=== PATIENT | female | born 1935 | race Hispanic/Latino ===

== ENCOUNTER → 2017-08-26 | Day surgery (SDC) | payer MEDICARE ==
[2017-08-21 14:44] LABS: BASOPHILS % 0.3 % (0.0-1.0); EOSINOPHILS # (AUTO) 0.4 (0.0-0.4); EOSINOPHILS % 4.5 % (0.0-6.0); HEMATOCRIT 42.2 % (34.2-44.1); HEMOGLOBIN 14.1 g/dL (12.0-16.0); LYMPHOCYTES % 23.3 % (18.0-39.1); MEAN CORPUSCULAR HGB CONC 33.4 g/dL (31-35); MEAN CORPUSCULAR VOLUME 92.7 fL (81-99); MONOCYTES # (AUTO) 0.7 (0.2-0.8); MONOCYTES % 8.1 % (4.4-11.3); NEUTROPHILS # (AUTO) 5.5 (2.1-6.9); NEUTROPHILS % 63.3 % (38.7-80.0); PLATELET COUNT 196 x10e3/uL (140-360); RED BLOOD COUNT 4.55 x10e6/uL (3.6-5.1); RED CELL DISTRIBUTION WIDTH 12.9 % (11.7-14.4)
[~2017-08-26] MED LIST: FENTANYL CITRATE/PF 100MCG/2 ML INJ ONE; GLIPIZIDE5 MG PO; HYDROCHLOROTHIA25 MG PO; LEVOTHYROXINE50 MCG PO; METOPROLOL TART50 MG PO; PROPOFOL IV EMULSION 10 MG/ML 50 ML VIAL ONE; VESICARE5 MG PO
--- OUTSIDE RECORDS SUMMARY | 2017-08-26 07:09 | XMS REPORT ---
Author [facility] Address Unknown Phone Unavailable Care Team Providers Care Jewel Stringer Name Role Phone GAYLE LOWE Unavailable Unavailable Problems This patient has no known problems. Allergies, Adverse Reactions, Alerts This patient has no known allergies or adverse reactions. Medications This patient has no known medications. Results Test Description Test Time Test Comments Text Results Atomic Results Result Comments OUTSIDE CONSULTATION 2017-07-23 14:48:00 Surgical Pathology Report Case: [id number] Authorizing Provider: Gayle Lowe MD Collected: 06/18/2017 1116 MPH Ordering Location: [facility] Laboratory Received: 06/18/2017 1119 Pathologist: Maggie Nunn MD Specimen: Biopsy, Liver, Received 10 slides [facility] [place] label [id number] OUTSIDE SLIDES, [id number], CORE BIOPSY OF LIVER ( DATE OF PROCEDURE 03/23/2014)- STEATOHEPATITIS- FIBROSIS STAGE 3-4 OF 4- MILD TO MODERATE HEMOSIDEROSIS- SEE COMMENT The non-alcoholic steatohepatitis (DONOVAN) activity scoring is performed according to guidelines from non-alcoholic steatohepatitis , clinical research network (Galo, et al. Hepatology 2005. 41:1313-21), at the request of the clinicianThe DONOVAN score is: Steatosis: Grade 3 + lobular inflammation, grade 2 + hepatocyte ballooning score 2=7/8. The fibrosis score is 3-4 of 4 Per pathology report provided the liver biopsy was sent for iron quantification to [facility] at [address]. The results are as follows (per pathology report)Iron in liver tissue: 499 microg (reference interval: 270-1600)Iron index: 0.12 (reference interval: 0-2)The case was discussed at the weekly liver biopsy conference held in the [facility] at [facility] on June 20, 2017. 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 Labs from 04/22/2017: AST 56, ALT 50, ALP 169 , AFP 7.6 and T bili 0.6. Outside slides, [id number], core biopsy of liver, date of procedure/specimen collection 03/23/2014 received from [facility], [address] [place], [place] [address].Received are 10 glass slides, each labeled [id number] (HE x2, PAS-D, Reticulin, Iron, Trichrome, PAS control, iron control, Trichrome control and Reticulin control).Section shows multiple cores of liver parenchyma with greater than 10 portal tracts and is adequate for evaluation. There is diffuse steatosis, macrovesicular type admixed with small and medium droplet steatosis, involving about 70% of liver parenchyma. Multifocal ballooning degeneration with early Donna Denk hyaline is noted. There is moderate lobular inflammation with few scattered acidophilic bodies. Focal neutrophilic infiltration is seen. Few glycogenated nuclei are seen. The portal tracts show mild chronic lymphocyte-predominant inflammation with mild interface hepatitis. The bile ducts are preserved in most portal tracts and show mild damage and focal ill-defined periductal sclerosis. Cholangiolar proliferation with associated neutrophils is present. Iron stain shows 2+ staining of the hepatocytes. No hyaline globules are seen on PASD stain. The trichrome stain shows prominent perisinusoidal fibrosis along with portal/periportal fibrosis and bridging fibrosis with focal nodularity. s MR, ABDOMEN, WITH 2017-06-11 11:10:00 Referring: Dr. Indra Ramires FINAL REPORT History: Cirrhosis, rule out liver mass/lesion Comparison: None Technique : Multiplanar imaging with multiple sequences of the abdomen was performed utilizing a 3.0 trish magnet with and without the administration of gadolinium contrast. Comment: The lung bases are clear. There are no focal or diffuse abnormalities of the osseous structures. The subcutaneous soft tissues as well as the musculature are within normal limits. The spleen, adrenal glands, gallbladder, pancreas, stomach, and duodenum are within normal limits. There is no abdominal or retroperitoneal lymphadenopathy. The visualized portions of the large and small bowel are within normal limits. Arising from the upper pole of the left kidney, there is a small cyst. Seen on the coronal view only, there is a partially visualized cystic lesion in the pelvis measuring up to 3.7 cm. Correlation with a pelvic ultrasound is advised. There is hepatic cirrhosis. No suspicious enhancing hepatic lesions are seen. No ascites is identified. The portal vein measures up to a maximum of 1.4 cm in diameter. There is no portal, splenic, or superior mesenteric vein thrombosis. There is a small recanalized periumbilical vein. Impression: 1. Hepatic cirrhosis. No suspicious enhancing hepatic lesions are seen. 2. Findings consistent with portal hypertension. 3. Partially visualized cysts/cystic lesion in the pelvis. In a postmenopausal female, this should be further evaluated with a pelvic ultrasound. Signed: Serg Kimbrough MDReport Verified Date/ Time: 06/11/2017 11:10:41 Reading Location: [facility] Diagnostic Imaging Reading Room - [place] [id number] Electronically signed by: SERG KIMBROUGH M.D. on 2016 11:10 AM HEPATITIS C PCR, QUANTITATIVE 2017-05-31 13:48:00 HCV RESULT COMPONENT (BEAKER) (test egwm=6120) HCV RNA not detected HCV RNA not detected This test uses a Real-Time Polymerase Chain Reaction (RT-PCR) methodology and was performed using LIYAH Ampliprep/LIYAH TaqMan HCV test kit version 2.0 ( [employer]).Reportable range for this assay is 15 - 100,000, 000 IU per mL (1.18 - 8.00 Log IU/mL).ANTI-NUCLEAR ANTIBODY (CATRINA)2017-05-29 13: 24:00* Test Item Value Reference Range Comments ANTI-NUCLEAR ANTIBODY (CATRINA) (BEAKER) (test utfs=823) Positive Negative CATRINA TITER AND [id number] 13:24:00* Test Item Value Reference Range Comments CATRINA TITER (BEAKER) (test adcj=6379) :160 CATRINA PATTERN (BEAKER) (test qksd=8409) Homogeneous [id number] 15:34:00* Test Item Value Reference Range Comments FERRITIN (BEAKER) (test ssta=957) 326 ng/mL 5-275 HEPATITIS A ANTIBODY, [id number] 14:55:00* Test Item Value Reference Range Comments HEPATITIS A IGG ANTIBODY (BEAKER) (test spbo=8025) Reactive Nonreactive HEPATITIS B SURFACE [id number] 14:52:00* Test Item Value Reference Range Comments HEPATITIS B SURFACE ANTIBODY (BEAKER) (test vkyo=194) < mIU/mL <8.0 ALPHA FETOPROTEIN (AFP), TUMOR [id number] 14:40:00* Test Item Value Reference Range Comments ALPHA-FETOPROTEIN (BEAKER) (test rfpl=0097) 8.1 ng/mL <10.0 HEPATITIS B CORE ANTIBODY, [id number] 14:40:00* Test Item Value Reference Range Comments HEPATITIS B CORE TOTAL ANTIBODY (BEAKER) (test kflo=080) Nonreactive Nonreactive COMPREHENSIVE METABOLIC [id number] 13:38:00* Test Item Value Reference Range Comments TOTAL PROTEIN (BEAKER) (test hvnr=700) 8.2 gm/dL 6.0-8.3 ALBUMIN (BEAKER) (test ljro=8974) 4.3 g/dL 3.5-5.0 ALKALINE PHOSPHATASE (BEAKER) (test vpjl=001) 178 U/L 40-150 BILIRUBIN TOTAL (BEAKER) (test jzno=454) 1.0 mg/dL 0.2-1.2 SODIUM (BEAKER) (test nkkv=578) 136 meq/L 136-145 POTASSIUM (BEAKER) (test yxlv=692) 3.5 meq/L 3.5-5.1 CHLORIDE (BEAKER) (test lnfu=572) 96 meq/L 98-107 CO2 (BEAKER) (test tgwl=334) 26 meq/L 22-29 BLOOD UREA NITROGEN (BEAKER) (test jnzf=469) 20 mg/dL 7-21 CREATININE (BEAKER) (test djwj=985) 1.15 mg/dL 0.57-1.25 GLUCOSE RANDOM (BEAKER) (test bvkg=809) 91 mg/dL 70-105 CALCIUM (BEAKER) (test mzjo=623) 10.0 mg/dL 8.4-10.2 AST (SGOT) (BEAKER) (test uvbg=299) 59 U/L 5-34 ALT (SGPT) (BEAKER) (test otsc=442) 48 U/L 6-55 EGFR (BEAKER) (test pfhe=0414) 45 mL/min/1.73 sq m ESTIMATED GFR IS NOT ACCURATE CREATININE CLEARANCE IN PREDICTING GLOMERULAR FILTRATION RATE. ESTIMATED GFR IS NOT APPLICABLE FOR DIALYSIS PATIENTS. BILIRUBIN, [id number] 13:38:00* Test Item Value Reference Range Comments BILIRUBIN DIRECT (BEAKER) (test tdwx=770) 0.4 mg/dL 0.1-0.5 HEPATITIS B SURFACE [id number] 13:20:00* Test Item Value Reference Range Comments HEPATITIS B SURFACE ANTIGEN (2) (BEAKER) (test zonv=2868) Nonreactive Nonreactive HEPATITIS C [id number] 13:20:00* Test Item Value Reference Range Comments HEPATITIS C ANTIBODY (BEAKER) (test sudr=699) Nonreactive Nonreactive IRON, TIBC, % SAT. (WITHOUT FERRITIN)2017-05-28 12:55:00* Test Item Value Reference Range Comments IRON (BEAKER) (test hwnd=740) 77 ug/dL 40-160 TOTAL IRON BINDING CAPACITY (BEAKER) (test lmmg=912) 334 ug/dL 250-450 IRON % SATURATION (2) (BEAKER) (test iuml=8230) 23 % 20-55 PROTHROMBIN TIME/[id number] 12:47:00* Test Item Value Reference Range Comments PROTIME (BEAKER) (test scob=712) 16.0 seconds 11.7-14.7 INR (BEAKER) (test utwy=114) 1.3 <=5.9 RECOMMENDED COUMADIN/WARFARIN INR THERAPY RANGESSTANDARD DOSE: 2.0 - 3.0 Includes: PROPHYLAXIS for venous thrombosis, systemic embolization; TREATMENT for venous thrombosis and/or pulmonary embolus.HIGH RISK: Target INR is 2.5-3.5 for patients with mechanical heart valves.CBC W/PLT COUNT & AUTO [id number] 12:39:00* Test Item Value Reference Range Comments WHITE BLOOD CELL COUNT (BEAKER) (test qtlo=102) 9.1 K/ L 3.5-10.5 RED BLOOD CELL COUNT (BEAKER) (test hecs=648) 4.41 M/ L 3.93-5.22 HEMOGLOBIN (BEAKER) (test rhxz=285) 13.7 GM/DL 11.2-15.7 HEMATOCRIT (BEAKER) (test atmq=044) 41.5 % 34.1-44.9 MEAN CORPUSCULAR VOLUME (BEAKER) (test girp=630) 94.1 fL 79.4-94.8 MEAN CORPUSCULAR HEMOGLOBIN (BEAKER) (test wkik=602) 31.1 pg 25.6-32.2 MEAN CORPUSCULAR HEMOGLOBIN CONC (BEAKER) (test ekse=516) 33.0 GM/DL 32.2- 35.5 RED CELL DISTRIBUTION WIDTH (BEAKER) (test ucbx=779) 13.0 % 11.7-14.4 PLATELET COUNT (BEAKER) (test sxsj=877) 211 K/CU MM 150-450 MEAN PLATELET VOLUME (BEAKER) (test rhqc=619) 11.3 fL 9.4-12.3 NUCLEATED RED BLOOD CELLS (BEAKER) (test olmy=934) 0 /100 WBC 0-0 NEUTROPHILS RELATIVE PERCENT (BEAKER) (test jmmr=784) 62 % LYMPHOCYTES RELATIVE PERCENT (BEAKER) (test epch=027) 26 % MONOCYTES RELATIVE PERCENT (BEAKER) (test lrap=866) 7 % EOSINOPHILS RELATIVE PERCENT (BEAKER) (test tczi=182) 4 % BASOPHILS RELATIVE PERCENT (BEAKER) (test zunq=174) 0 % NEUTROPHILS ABSOLUTE COUNT (BEAKER) (test hjwa=706) 5.61 K/ L 1.56-6.13 LYMPHOCYTES ABSOLUTE COUNT (BEAKER) (test rgvh=327) 2.40 K/ L 1.18-3.74 MONOCYTES ABSOLUTE COUNT (BEAKER) (test fzxn=394) 0.65 K/ L 0.24-0.36 EOSINOPHILS ABSOLUTE COUNT (BEAKER) (test hots=247) 0.35 K/ L 0.04-0.36 BASOPHILS ABSOLUTE COUNT (BEAKER) (test gvgr=063) 0.04 K/ L 0.01-0.08 IMMATURE GRANULOCYTES-RELATIVE PERCENT (BEAKER) (test oogp=9215) 1 % 0-1
== END | disposition home or self-care (01) ==
LOC: OR 07:06
PROVIDERS: ATTEND Internal Medicine Gastroenterology
DX: K74.69 Other cirrhosis of liver (principal); D12.0 Benign neoplasm of cecum; D12.3 Benign neoplasm of transverse colon; K29.70 Gastritis, unspecified, without bleeding; K21.0 Gastro-esophageal reflux disease with esophagitis; K44.9 Diaphragmatic hernia without obstruction or gangrene; K57.30 Diverticulosis of large intestine without perforation or abscess without bleeding; K64.8 Other hemorrhoids; R93.5 Abnormal findings on diagnostic imaging of other abdominal regions, including retroperitoneum; I10 Essential (primary) hypertension; J45.909 Unspecified asthma, uncomplicated; E03.9 Hypothyroidism, unspecified; E11.9 Type 2 diabetes mellitus without complications; Z01.810 Encounter for preprocedural cardiovascular examination; Z01.812 Encounter for preprocedural laboratory examination; Z68.34 Body mass index [BMI] 34.0-34.9, adult
CPT/HCPCS: 36415; 43239; 45384; 45385; 82948; 85025; 88305; 88312; 93005

== ENCOUNTER → 2018-11-12 | Outpatient (CLI) | payer MEDICARE ==
[~2018-11-12] MED LIST changes: -FENTANYL CITRATE/PF 100MCG/2 ML INJ ONE; +LORATADINE10 MG PO; -PROPOFOL IV EMULSION 10 MG/ML 50 ML VIAL ONE
--- NOTE | 2018-11-12 09:01 | Diagnostic Imaging Report ---
Right upper quadrant ultrasound. History: Nonalcoholic micronodular cirrhosis of the liver Comparison: 03/29/2015. Discussion: Transverse and longitudinal images of the abdomen were obtained demonstrating a liver of normal size measuring 14.2 cm in length (previously measured 14.3 cm). There is increased hepatic echogenicity compatible with steatosis. Hepatic contour is nodular. No mass is identified. The portal vein is patent with hepatopetal flow and is within normal limits measuring 11 mm in diameter. The biliary tree is within normal limits with the common bile duct measuring 3 mm in diameter. The gallbladder is normal without evidence of stones, wall thickening or pericholecystic fluid. The sonographic Flores's sign was negative. The right kidney is normal in size without evidence of hydronephrosis, stones or mass. The right kidney measures 10.2 x 4.7 x 4.2 cm. The pancreas is normal in appearance. The abdominal aorta is within normal limits. The IVC is patent. There is no evidence of free fluid. IMPRESSION: Hepatic steatosis without significant interval change. Signed by: Dr. Zackary Garcias DO on 11/12/2018 8:58 AM
== END ==
LOC: US 07:26
PROVIDERS: ATTEND Internal Medicine Gastroenterology
DX: K74.69 Other cirrhosis of liver (principal)
CPT/HCPCS: 76705

== ENCOUNTER → 2018-11-17 | Day surgery (SDC) | payer MEDICARE ==
[2018-11-12 09:17] LABS: BASOPHILS % 0.3 % (0.0-1.0); EOSINOPHILS # (AUTO) 0.3 (0.0-0.4); EOSINOPHILS % 4.3 % (0.0-6.0); HEMATOCRIT 41.9 % (34.2-44.1); HEMOGLOBIN 14.3 g/dL (12.0-16.0); LYMPHOCYTES # (AUTO) 2.1 (1.0-3.2); LYMPHOCYTES % 30.1 % (18.0-39.1); MEAN CORPUSCULAR HEMOGLOBIN 30.8 pg (28-32); MEAN CORPUSCULAR HGB CONC 34.1 g/dL (31-35); MEAN CORPUSCULAR VOLUME 90.3 fL (81-99); MONOCYTES # (AUTO) 0.5 (0.2-0.8); MONOCYTES % 6.9 % (4.4-11.3); PLATELET COUNT 176 x10e3/uL (140-360); RED BLOOD COUNT 4.64 x10e6/uL (3.6-5.1); RED CELL DISTRIBUTION WIDTH 13.9 % (11.7-14.4)
[2018-11-12 09:21] LABS: INR 1.13
[2018-11-12 09:22] LABS: PARTIAL THROMBOPLASTIN TIME 38.6 seconds (23.8-35.5)
[2018-11-12 09:35] LABS: ALBUMIN 3.7 g/dL (3.5-5.0); ALBUMIN/GLOBULIN RATIO 0.9 (0.8-2.0); ANION GAP 12.8 mmol/L (8-16); CALCIUM 9.7 mg/dL (8.4-10.2); CREATININE, SERUM 1.15 mg/dL (0.57-1.11); POTASSIUM 3.8 mmol/L (3.5-5.1)
[~2018-11-17] MED LIST changes: +LIDOCAINE HCL 2% LOCAL INJ 5 ML SDV VIAL INJ ONE; +PROPOFOL IV EMULSION 10 MG/ML 20 ML VIAL ONE
--- OUTSIDE RECORDS SUMMARY | 2018-11-17 06:55 | XMS REPORT | Clinical Summary ---
Author Author BRENDA Arcamed [facility] [place] Organization [facility] Address Unknown Phone Unavailable Care Team Providers Care Brush Maker Machine Name Role Phone Kathy Joseph MD PCP Allergies No Known Allergies Medications End Date Status Medication Sig Dispensed Refills Start Date Active VESICARE 5 mg tablet 0 7 Active hydroCHLOROthiazide 0 (HYDRODIURIL) 25 MG 7 tablet Active levothyroxine (SYNTHROID, Take 25 mcg 3 LEVOTHROID) 25 MCG tablet by mouth 7 daily TOME COLIN TABLETA POR VIA ORAL TODOS LOS GARCÍA. Active glipiZIDE (GLUCOTROL) 5 Take 5 mg by 1 MG tablet mouth daily. 7 Active metoprolol (LOPRESSOR) 0 100 MG tablet 7 Active beclomethasone (QVAR) 80 Inhale 1 puff 0 mcg/actuation inhaler by mouth via inhaler 2 (two) times daily. Active fluticasone (FLOVENT Inhale 1 puff 0 DISKUS) 50 mcg/actuation by mouth via diskus inhaler inhaler daily. Active Problems Problem Noted Date Cirrhosis PAVON (nonalcoholic steatohepatitis) Elevated liver enzymes Obesity, Class II, BMI 35-39.9 Abnormal findings on diagnostic imaging of abdomen Encounters Care Team Description Date Type Specialty Kelsie Morrison NP Results 02/16/2018 Telephone Hepatology Gayle Lowe MD MPH Cirrhosis of liver without ascites, unspecified hepatic cirrhosis type (HCC); Pelvic mass; Abnormal findings on diagnostic imaging of abdomen 02/13/2018 Hospital Radiology Encounter Gayle Lowe MD MPH Pelvic mass (Primary Dx); Cirrhosis of liver without ascites, unspecified hepatic cirrhosis type (HCC); Abnormal findings on diagnostic imaging of abdomen 02/11/2018 Orders Only Hepatology Gayle Lowe MD MPH Pelvic mass in female 02/10/2018 Hospital Radiology Encounter Gayle Lowe MD MPH 02/04/2018 Outside Orders Radiology Kelsie Morrison NP Pelvic mass in female (Primary Dx) 01/08/2018 Orders Only Hepatology Gayle Loew MD MPH Abnormal findings on diagnostic imaging of abdomen 01/06/2018 Hospital Radiology Encounter Haleigh Zelaya RN 01/01/2018 Abstract Hepatology Kelsie Morrison NP Results 12/31/2017 Telephone Hepatology Gayle Lowe MD MPH Kelsie Morrison NP Cirrhosis of liver without ascites, unspecified hepatic cirrhosis type (HCC) (Primary Dx); Abnormal findings on diagnostic imaging of abdomen; PAVON (nonalcoholic steatohepatitis); Elevated liver enzymes; Obesity, Class II, BMI 35-39.9; Screening for malignant neoplasm 12/29/2017 Office Visit Hepatology after 11/16/2017 Family History Medical History Relation Name Comments Obesity Sister Relation Name Status Comments Sister Social History Date Tobacco Use Types Packs/Day Years Used Never Smoker Smokeless Tobacco: Never Used Tobacco Cessation: Counseling Given: No Alcohol Use Drinks/Week oz/Week Comments No Sex Assigned at Date Recorded Not on file Industry Job Start Date Occupation Not on file Not on file Not on file Travel End Travel History Travel Start No recent travel history available. Last Filed Vital Signs Time Taken Vital Sign Reading 12/29/2017 1:23 PM CDT Blood Pressure 153/79 12/29/2017 1:23 PM CDT Pulse 82 12/29/2017 1:23 PM CDT Temperature 36.3 C (97.3 F) 12/29/2017 1:23 PM CDT Respiratory Rate 16 12/29/2017 1:23 PM CDT Oxygen Saturation 98% - Inhaled Oxygen - Concentration 12/29/2017 1:23 PM CDT Weight 79.6 kg (175 lb 6.4 oz) 12/29/2017 1:23 PM CDT Height 144.8 cm (4' 9") 12/29/2017 1:23 PM CDT Body Mass Index 37.96 Plan of Treatment Not on file Procedures Comments Procedure Name Priority Date/Time Associated Diagnosis MR PELVIS WITHOUT & WITH Routine 02/13/2018 Cirrhosis of liver IV CONTRAST 4:29 PM CDT without ascites, unspecified hepatic cirrhosis type (HCC) Pelvic mass Abnormal findings on diagnostic imaging of abdomen POCT-CREATININE Routine 02/13/2018 3:50 PM CDT US PELVIS Routine 02/10/2018 Pelvic mass in female 3:24 PM CDT MR ABDOMEN WITH/WITHOUT Routine 01/06/2018 Abnormal findings on IV CONTRAST 3:39 PM CDT diagnostic imaging of abdomen CBC W/PLT COUNT & AUTO Routine 12/29/2017 Cirrhosis of liver DIFFERENTIAL 2:41 PM CDT without ascites, unspecified hepatic cirrhosis type (HCC) ALPHA FETOPROTEIN (AFP), Routine 12/29/2017 Screening for malignant TUMOR MARKER 2:41 PM CDT neoplasm PROTHROMBIN TIME/INR Routine 12/29/2017 Cirrhosis of liver 2:41 PM CDT without ascites, unspecified hepatic cirrhosis type (HCC) CBC W/PLT COUNT & AUTO Routine 12/29/2017 Cirrhosis of liver DIFFERENTIAL 2:41 PM CDT without ascites, unspecified hepatic cirrhosis type (HCC) HEPATIC FUNCTION PANEL Routine 12/29/2017 Cirrhosis of liver 2:41 PM CDT without ascites, unspecified hepatic cirrhosis type (HCC) BASIC METABOLIC PANEL (7) Routine 12/29/2017 Cirrhosis of liver 2:41 PM CDT without ascites, unspecified hepatic cirrhosis type (HCC) after 11/16/2017 Results * MR pelvis without & with IV contrast (02/13/2018 4:29 PM CDT) Specimen Narrative Performed At FINAL REPORT [facility] History: Pelvic mass Comparison: Ultrasound dated 02/10/2018 Technique : Multiplanar imaging with multiple sequences of the pelvis was performed utilizing a 1.5 trish magnet with and without the administration of gadolinium contrast. Comment: PELVIS: There are no focal or diffuse osseous abnormalities. There is no pelvic lymphadenopathy. The visualized portions of the small bowel are within normal limits. There is diverticulosis of the visualized portions of the large bowel. No free fluid is identified. The uterus is atrophic. The uterus measures 4.2 x 3.1 x 3.4 cm. The endometrial stripe measures up to 2 mm in thickness. No suspicious endometrial-based lesions are identified. Cephalad to the uterus, there is a cluster of 3 cysts versus a larger multiseptated cyst measuring up to 3.8 x 4.1 cm. No areas of nodularity are identified within this cystic lesion. In a postmenopausal female, this could represent a cystic ovarian neoplasm such as a cystadenoma. Gynecological surgical consultation is advised. Impression: Single multiseptated cyst versus a cluster of 3 cysts cephalad to the uterus, presumably arising from the left ovary/adnexa. In a postmenopausal female, a cystic ovarian neoplasm cannot be excluded. No solid components or nodularity is identified within the cystic lesion(s). Signed: Serg Kimbrough MD Report Verified Date/Time:02/13/2018 17:42:38 Reading Location: [address] Body Reading Room Procedure Note Interface, External Ris In - 02/13/2018 5:44 PM CDT FINAL REPORT History: Pelvic mass Comparison: Ultrasound dated 02/10/2018 Technique : Multiplanar imaging with multiple sequences of the pelvis was performed utilizing a 1.5 trish magnet with and without the administration of gadolinium contrast. Comment: PELVIS: There are no focal or diffuse osseous abnormalities. There is no pelvic lymphadenopathy. The visualized portions of the small bowel are within normal limits. There is diverticulosis of the visualized portions of the large bowel. No free fluid is identified. The uterus is atrophic. The uterus measures 4.2 x 3.1 x 3.4 cm. The endometrial stripe measures up to 2 mm in thickness. No suspicious endometrial-based lesions are identified. Cephalad to the uterus, there is a cluster of 3 cysts versus a larger multiseptated cyst measuring up to 3.8 x 4.1 cm. No areas of nodularity are identified within this cystic lesion. In a postmenopausal female, this could represent a cystic ovarian neoplasm such as a cystadenoma. Gynecological surgical consultation is advised. Impression: Single multiseptated cyst versus a cluster of 3 cysts cephalad to the uterus, presumably arising from the left ovary/adnexa. In a postmenopausal female, a cystic ovarian neoplasm cannot be excluded. No solid components or nodularity is identified within the cystic lesion(s). Signed: Serg Kimbrough MD Report Verified Date/Time: 02/13/2018 17:42:38 Reading Location: [facility] B1 C013Y CT Body Reading Room Performing Organization Address City/State/Zipcode Phone Number [facility] * POC-Creatinine (02/13/2018 3:50 PM CDT) POC-Creatinine 1.0Comment: TESTED AT [facility]-KG 0.6 - 1.3 mg/dL [facility] [address] [place] [address] [place] [address] POC-EGFR 53 mL/min/1.73M2 [facility] Specimen Blood Narrative Performed At Performing Organization Address City/State/[facility] Phone Number [facility] [address] [place] [address] [facility] * US pelvis (02/10/2018 3:24 PM CDT) Specimen Narrative Performed At FINAL REPORT [facility] Ultrasound of the pelvis. HISTORY: Pelvic mass. COMPARISON STUDY: MRI of the abdomen dated January 06, 2018. FINDINGS: Only a transabdominal pelvic ultrasound was performed. No endovaginal component was included. The uterus measures 3.5 x 2.3 x 2.7 cm. The endometrial stripe measures 3 mm. Neither the right nor the left ovary could be identified. In the midline extending towards the left side of the pelvis is a 3.3 x 3.4 x 4.6 cm cystic lesion corresponding to the lesion seen on MRI. It contains a septation. No free fluid is seen. IMPRESSION: 1. Study limited by lack of endovaginal component. 2. Cystic lesion in the pelvis as seen on MRI. The origin of this cystic lesion is difficult to determine with ultrasound as the ovaries are not seen. The lesion could be further characterized with a pelvic MRI. Alternatively, short-term ultrasound could be performed to document stability. Signed: Vince Talavera MD Report Verified Date/Time:02/10/2018 15:42:39 Reading Location: [address] Radiology Reading Room Procedure Note Interface, External Ris In - 02/10/2018 3:44 PM CDT FINAL REPORT Ultrasound of the pelvis. HISTORY: Pelvic mass. COMPARISON STUDY: MRI of the abdomen dated January 06, 2018. FINDINGS: Only a transabdominal pelvic ultrasound was performed. No endovaginal component was included. The uterus measures 3.5 x 2.3 x 2.7 cm. The endometrial stripe measures 3 mm. Neither the right nor the left ovary could be identified. In the midline extending towards the left side of the pelvis is a 3.3 x 3.4 x 4.6 cm cystic lesion corresponding to the lesion seen on MRI. It contains a septation. No free fluid is seen. IMPRESSION: 1. Study limited by lack of endovaginal component. 2. Cystic lesion in the pelvis as seen on MRI. The origin of this cystic lesion is difficult to determine with ultrasound as the ovaries are not seen. The lesion could be further characterized with a pelvic MRI. Alternatively, short-term ultrasound could be performed to document stability. Signed: Vince Talavera MD Report Verified Date/Time: 02/10/2018 15:42:39 Reading Location: [address] Radiology Reading Room Performing Organization Address City/State/Zipcode Phone Number [facility] * MR abdomen with/without IV contrast (01/06/2018 3:39 PM CDT) Specimen Narrative Performed At FINAL REPORT [facility] MRI of the abdomen. CLINICAL HISTORY: liver protocol, cirrhosis, screen for liver cancer. COMPARISON STUDY: June 11, 2017. Technique: Multiplanar, multisequence imaging of the abdomen was acquired both pre and post administration of intravenous gadolinium in a dynamic fashion. No oral contrast was administered. FINDINGS: No pleural effusion is seen. The liver is nodular and cirrhotic in appearance. Post administration of intravenous gadolinium in a dynamic fashion, no suspicious enhancing masses are seen. Respiratory motion artifact degrades assessment. The main portal vein is widely patent measuring 1.4 cm. The gallbladder and biliary tree are unremarkable. The spleen is enlarged measuring 13.6 cm in length. The pancreas, adrenal glands and right kidney are unremarkable. A 9 mm cyst is seen in the upper pole of the left kidney. There are no dilated loops of bowel seen to suggest obstruction. No ascites is seen. There is no suspicious adenopathy. The aorta is normal in caliber. The visualized osseous structures demonstrate degenerative changes. A partially visualized 3.6 cm cystic mass is seen in the left pelvis. IMPRESSION: 1. Nodular, cirrhotic appearing liver with no suspicious masses. 2. Splenomegaly. 3. Partially visualized cystic mass in the pelvis. Correlation with pelvic ultrasound is recommended to exclude an ovarian cystic neoplasm. Signed: Vince Talavera MD Report Verified Date/Time:01/06/2018 18:04:56 Reading Location: [address] Radiology Reading Room Procedure Note Interface, External Ris In - 01/06/2018 6:07 PM CDT FINAL REPORT MRI of the abdomen. CLINICAL HISTORY: liver protocol, cirrhosis, screen for liver cancer. COMPARISON STUDY: June 11, 2017. Technique: Multiplanar, multisequence imaging of the abdomen was acquired both pre and post administration of intravenous gadolinium in a dynamic fashion. No oral contrast was administered. FINDINGS: No pleural effusion is seen. The liver is nodular and cirrhotic in appearance. Post administration of intravenous gadolinium in a dynamic fashion, no suspicious enhancing masses are seen. Respiratory motion artifact degrades assessment. The main portal vein is widely patent measuring 1.4 cm. The gallbladder and biliary tree are unremarkable. The spleen is enlarged measuring 13.6 cm in length. The pancreas, adrenal glands and right kidney are unremarkable. A 9 mm cyst is seen in the upper pole of the left kidney. There are no dilated loops of bowel seen to suggest obstruction. No ascites is seen. There is no suspicious adenopathy. The aorta is normal in caliber. The visualized osseous structures demonstrate degenerative changes. A partially visualized 3.6 cm cystic mass is seen in the left pelvis. IMPRESSION: 1. Nodular, cirrhotic appearing liver with no suspicious masses. 2. Splenomegaly. 3. Partially visualized cystic mass in the pelvis. Correlation with pelvic ultrasound is recommended to exclude an ovarian cystic neoplasm. Signed: Vince Talavera MD Report Verified Date/Time: 01/06/2018 18:04:56 Reading Location: [address] Radiology Reading Room Performing Organization Address City/State/Zipcode Phone Number [facility] * CBC with platelet count + automated diff (12/29/2017 2:41 PM CDT) WBC 8.5 3.5 - 10.5 K/L [facility] RBC 4.28 3.93 - 5.22 M/L [facility] Hemoglobin 13.0 11.2 - 15.7 GM/DL [facility] Hematocrit 38.9 34.1 - 44.9 % [facility] MCV 90.9 79.4 - 94.8 fL [facility] MCH 30.4 25.6 - 32.2 pg [facility] MCHC 33.4 32.2 - 35.5 GM/DL [facility] RDW 13.2 11.7 - 14.4 % [facility] Platelets 185 150 - 450 K/CU MM [facility] MPV 11.5 9.4 - 12.3 fL [facility] nRBC 0 0 - 0 /100 WBC [facility] % Neutros 60 % [facility] % Lymphs 27 % [facility] % Monos 9 % [facility] % Eos 4 % [facility] % Baso 0 % [facility] # Neutros 5.07 1.56 - 6.13 K/L [facility] # Lymphs 2.25 1.18 - 3.74 K/L [facility] # Monos 0.72 (H) 0.24 - 0.36 K/L [facility] # Eos 0.33 0.04 - 0.36 K/L [facility] # Baso 0.02 0.01 - 0.08 K/L [facility] Immature 1 0 - 1 % [facility] Granulocytes-Relative [facility] Specimen Blood Performing Organization Address City/[facility] Phone Number [address] [address] [facility] * Alpha fetoprotein (AFP), tumor marker (12/29/2017 2:41 PM CDT) Alpha-Fetoprotein 6.8 <10.0 ng/mL [facility] Specimen Blood Performing Organization Address City/[facility] Phone Number [address] [phone] [facility] * Pro-time/INR (12/29/2017 2:41 PM CDT) Protime 15.6 (H) 11.7 - 14.7 seconds [facility] INR 1.2 <=5.9 [facility] Specimen Blood Narrative Performed At RECOMMENDED COUMADIN/WARFARIN INR THERAPY RANGES [facility] STANDARD DOSE: 2.0 - 3.0 Includes: PROPHYLAXIS for venous thrombosis, [facility] systemic embolization; TREATMENT for venous thrombosis and/or pulmonary embolus. HIGH RISK: Target INR is 2.5-3.5 for patients with mechanical heart valves. Performing Organization Address City/[facility] Phone Number [address] [address] [facility] * Hepatic function panel (12/29/2017 2:41 PM CDT) Protein, Total 7.6 6.0 - 8.3 gm/dL [facility] Albumin 4.2 3.5 - 5.0 g/dL [facility] Total Bilirubin 0.7 0.2 - 1.2 mg/dL [facility] Bilirubin, Direct 0.3 0.1 - 0.5 mg/dL [facility] Alkaline Phosphatase 183 (H) 40 - 150 U/L [facility] AST 44 (H) 5 - 34 U/L [facility] ALT 38 6 - 55 U/L [facility] Specimen Blood Performing Organization Address City/State/Zipcode Phone Number [facility] [address] [place], [place] [id number] [facility] * Basic Metabolic Panel (12/29/2017 2:41 PM CDT) Sodium 136 136 - 145 meq/L [facility] Potassium 3.1 (L) 3.5 - 5.1 meq/L [facility] Chloride 96 (L) 98 - 107 meq/L [facility] CO2 25 22 - 29 meq/L [facility] BUN 20 7 - 21 mg/dL [facility] Creatinine 0.90 0.57 - 1.25 mg/dL [facility] Glucose 80 70 - 105 mg/dL [facility] Calcium 9.8 8.4 - 10.2 mg/dL [facility] EGFR 60Comment: ESTIMATED GFR IS mL/min/1.73 sq m [facility] NOT ACCURATE CREATININE [facility] CLEARANCE IN PREDICTING GLOMERULAR FILTRATION RATE. ESTIMATED GFR IS NOT APPLICABLE FOR DIALYSIS PATIENTS. Specimen Blood Performing Organization Address City/State/Zipcode Phone Number [facility] [address] [place] [address] [facility] after 11/16/2017 Insurance Payer Benefit Subscriber ID Type Phone Address Plan / Group MEDICARE MEDICARE A xxxxxxxxxx Medicare B MEDICAID MEDICAID xxxxxxxxx Medicaid OF [place]
[2018-11-17 09:55] VITALS: BP 140/74
== END | disposition home or self-care (01) ==
LOC: OR 06:53
PROVIDERS: ATTEND Internal Medicine Gastroenterology
DX: K74.69 Other cirrhosis of liver (principal); K29.60 Other gastritis without bleeding; K21.0 Gastro-esophageal reflux disease with esophagitis; K44.9 Diaphragmatic hernia without obstruction or gangrene; K22.8 Other specified diseases of esophagus; I10 Essential (primary) hypertension; J45.909 Unspecified asthma, uncomplicated; M19.90 Unspecified osteoarthritis, unspecified site; E11.9 Type 2 diabetes mellitus without complications; E03.9 Hypothyroidism, unspecified; Z79.84 Long term (current) use of oral hypoglycemic drugs; Z68.33 Body mass index [BMI] 33.0-33.9, adult
CPT/HCPCS: 36415 ×2; 43239; 80053; 82948; 85025; 85610; 85730; 88305; 88312; 93005; J2001; J2704

== ENCOUNTER → 2020-01-04 | Day surgery (SDC) | payer MEDICARE, OTHER ==
[2019-12-31 13:34] LABS: BASOPHILS % 0.1 % (0.0-1.0); EOSINOPHILS # (AUTO) 0.3 (0.0-0.4); EOSINOPHILS % 3.9 % (0.0-6.0); HEMATOCRIT 39.3 % (34.2-44.1); LYMPHOCYTES # (AUTO) 1.8 (1.0-3.2); LYMPHOCYTES % 21.6 % (18.0-39.1); MEAN CORPUSCULAR HEMOGLOBIN 30.4 pg (28-32); MEAN CORPUSCULAR HGB CONC 33.1 g/dL (31-35); MEAN CORPUSCULAR VOLUME 91.8 fL (81-99); MONOCYTES # (AUTO) 0.6 (0.2-0.8); MONOCYTES % 7.3 % (4.4-11.3); NEUTROPHILS # (AUTO) 5.4 (2.1-6.9); NEUTROPHILS % 66.6 % (38.7-80.0); PLATELET COUNT 169 x10e3/uL (140-360); RED BLOOD COUNT 4.28 x10e6/uL (3.6-5.1); RED CELL DISTRIBUTION WIDTH 13.9 % (11.7-14.4)
[~2020-01-04] MED LIST changes: +MONTELUKAST SOD10 MG PO; +OMEPRAZOLE40 MG PO
== END | disposition home or self-care (01) ==
LOC: OR 09:55
PROVIDERS: ATTEND Internal Medicine Gastroenterology
DX: K22.70 Barrett's esophagus without dysplasia (principal); K31.7 Polyp of stomach and duodenum; K29.70 Gastritis, unspecified, without bleeding; K74.69 Other cirrhosis of liver; I85.10 Secondary esophageal varices without bleeding; K76.6 Portal hypertension; K31.89 Other diseases of stomach and duodenum; I10 Essential (primary) hypertension; E11.9 Type 2 diabetes mellitus without complications; E78.5 Hyperlipidemia, unspecified; J45.909 Unspecified asthma, uncomplicated; R77.2 Abnormality of alphafetoprotein; Z01.810 Encounter for preprocedural cardiovascular examination; Z01.812 Encounter for preprocedural laboratory examination; Z11.59 Encounter for screening for other viral diseases; Z79.84 Long term (current) use of oral hypoglycemic drugs
CPT/HCPCS: 36415 ×2; 43239; 43251; 82948; 85025; 87635; 88305; 88312; 93005; J2001; J2704